=== PATIENT | female | born 1960 | race Caucasian/White ===

== ENCOUNTER 2016-10-03 04:27 | Emergency (ER) | payer MEDICARE, OTHER ==
[~2016-10-03] VITALS: Ht 154.9 cm; Wt 51.6 kg
[~2016-10-03 04:27] MED LIST: FAMO20 PO; LORTA5 PO; MACR100C PO; MEDR10 PO; ONDA1TAB16 PO
[2016-10-03 04:35] VITALS: BP 156/95; PULSE 119; RESP 18; TEMP 98.3; O2SAT 96
[2016-10-03 04:50] VITALS: PULSE 100; RESP 18; O2SAT 99
[2016-10-03 04:52] VITALS: RESP 17
[2016-10-03] MEDS ORDERED: RASA1TAB PO (05:06)
[2016-10-03] MEDS ORDERED: ACET325T PO (05:08)
[2016-10-03] MEDS ORDERED: ACETAMINOPHEN 325 MG TAB PO ONE (05:15)
--- NOTE | 2016-10-03 05:15 | PD ---
HPI Chief Complaint: Cold / Flu Symptoms Time Seen by Provider: 04:52 Travel History International Travel<30 days: No Contact w/Intl Traveler<30days: No Traveled to known affect area: No History of Present Illness HPI 56yo F with early Parkinson and hip problem presents to the ED with c/o generalized muscle ache and occasional cough for a few days. +Nasal congestion. Has chills and thinks she has the flu. Son has same symptoms at home. Denies any fever, chest pain, sob, n/v, abdominal pain, focal weakness or numbness. 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;graft done at 3 y/o) Musculoskeletal: Yes (hip dysplasia) Parkinson's Disease: Yes (Currently in process of diagnosis) Immunizations Current: Yes Tetanus Vaccination: Unknown Influenza Vaccination: No ?: Not : 0 Past Surgical History Joint Replacement: Yes (Total Right hip) Social History Alcohol Use: Yes (rare) Tobacco Use: No Substance Use: No Allergies-Medications (Allergen,Severity, Reaction): Coded Allergies: No Known Allergies (Unverified , 10/03/16) Reported Meds & Prescriptions Reported Meds & Active Scripts Active Reported Acetaminophen 325 Mg Tab 650 Mg PO Q4-6H PRN Rasagiline 1 Mg Tab 1 Mg PO DAILY Review of Systems Except as stated in HPI: all other systems reviewed are Neg Physical Exam Narrative GENERAL: 56yo F not in distress. SKIN: Focused skin assessment warm/dry. HEAD: Atraumatic. Normocephalic. EYES: Pupils equal and round. No scleral icterus. No injection or drainage. ENT: No nasal bleeding or discharge. Mucous membranes pink and moist. NECK: Trachea midline. No JVD. CARDIOVASCULAR: Regular rate and rhythm. No murmur appreciated. RESPIRATORY: No accessory muscle use. Clear to auscultation. Breath sounds equal bilaterally. GASTROINTESTINAL: Abdomen soft, non-tender, nondistended. MUSCULOSKELETAL: No obvious deformities. No clubbing. No cyanosis. No edema. NEUROLOGICAL: Awake and alert. No obvious cranial nerve deficits. Motor grossly within normal limits. Normal speech. Resting tremor that is normal for her. PSYCHIATRIC: Appropriate mood and affect; insight and judgment normal. Data Data Last Documented VS Vital Signs Date Time Temp Pulse Resp B/P Pulse Ox O2 Delivery O2 Flow Rate FiO2 10/03/16 06:00 73 16 148/83 97 Room Air 10/03/16 04:35 98.3 Orders Influenzae A/B Antigen (10/03/16 05:02) Chest, Single Ap (10/03/16 ) Acetaminophen (Tylenol) (10/03/16 05:15) Complete Blood Count With Diff (10/03/16 05:10) Basic Metabolic Panel (Bmp) (10/03/16 05:10) Sodium Chlorid 0.9% 500 Ml Inj (Ns 500 M (10/03/16 05:45) Ondansetron Inj (Zofran Inj) (10/03/16 05:45) Labs Laboratory Tests Test 10/03/16 05:20 White Blood Count 8.8 TH/MM3 Red Blood Count 4.45 MIL/MM3 Hemoglobin 13.0 GM/DL Hematocrit 39.1 % Mean Corpuscular Volume 87.8 FL Mean Corpuscular Hemoglobin 29.1 PG Mean Corpuscular Hemoglobin 33.2 % Concent Red Cell Distribution Width 13.0 % Platelet Count 411 TH/MM3 Mean Platelet Volume 8.3 FL Neutrophils (%) (Auto) 66.1 % Lymphocytes (%) (Auto) 27.2 % Monocytes (%) (Auto) 5.8 % Eosinophils (%) (Auto) 0.3 % Basophils (%) (Auto) 0.6 % Neutrophils # (Auto) 5.8 TH/MM3 Lymphocytes # (Auto) 2.4 TH/MM3 Monocytes # (Auto) 0.5 TH/MM3 Eosinophils # (Auto) 0.0 TH/MM3 Basophils # (Auto) 0.1 TH/MM3 CBC Comment DIFF FINAL Differential Comment Sodium Level 139 MEQ/L Potassium Level 3.5 MEQ/L Chloride Level 99 MEQ/L Carbon Dioxide Level 30.9 MEQ/L Anion Gap 9 MEQ/L Blood Urea Nitrogen 9 MG/DL Creatinine 0.75 MG/DL Estimat Glomerular Filtration 80 ML/MIN Rate Random Glucose 114 MG/DL Calcium Level 9.0 MG/DL MDM Medical Decision Making Medical Screen Exam Complete: Yes Emergency Medical Condition: Yes Interpretation(s) Laboratory Tests Test 10/03/16 05:20 White Blood Count 8.8 TH/MM3 (4.0-11.0) Red Blood Count 4.45 MIL/MM3 (4.00-5.30) Hemoglobin 13.0 GM/DL (11.6-15.3) Hematocrit 39.1 % (35.0-46.0) Mean Corpuscular Volume 87.8 FL (80.0-100.0) Mean Corpuscular Hemoglobin 29.1 PG (27.0-34.0) Mean Corpuscular Hemoglobin 33.2 % Concent (32.0-36.0) Red Cell Distribution Width 13.0 % (11.6-17.2) Platelet Count 411 TH/MM3 (150-450) Mean Platelet Volume 8.3 FL (7.0-11.0) Neutrophils (%) (Auto) 66.1 % (16.0-70.0) Lymphocytes (%) (Auto) 27.2 % (9.0-44.0) Monocytes (%) (Auto) 5.8 % (0.0-8.0) Eosinophils (%) (Auto) 0.3 % (0.0-4.0) Basophils (%) (Auto) 0.6 % (0.0-2.0) Neutrophils # (Auto) 5.8 TH/MM3 (1.8-7.7) Lymphocytes # (Auto) 2.4 TH/MM3 (1.0-4.8) Monocytes # (Auto) 0.5 TH/MM3 (0-0.9) Eosinophils # (Auto) 0.0 TH/MM3 (0-0.4) Basophils # (Auto) 0.1 TH/MM3 (0-0.2) CBC Comment DIFF FINAL Differential Comment Sodium Level 139 MEQ/L (136-145) Potassium Level 3.5 MEQ/L (3.5-5.1) Chloride Level 99 MEQ/L (98-107) Carbon Dioxide Level 30.9 MEQ/L (21.0-32.0) Anion Gap 9 MEQ/L (5-15) Blood Urea Nitrogen 9 MG/DL (7-18) Creatinine 0.75 MG/DL (0.50-1.00) Estimat Glomerular Filtration 80 ML/MIN (>89) Rate Random Glucose 114 MG/DL (74-106) Calcium Level 9.0 MG/DL (8.5-10.1) Last Impressions Chest X-Ray 10/03/16 0000 Signed Impressions: Service Date/Time: Monday, October 03, 2016 05:31 - CONCLUSION: 1. No acute cardiopulmonary disease. Tirso Bui MD Differential Diagnosis Influenza vs. URI vs. Bronchitis vs. Pneumonia Narrative Course 56yo F with flu like symptoms. Labs reviewed, no leukocytosis. BMP unremarkable. CXR showed no acute cardiopulmonary disease. Influenza negative. Pt given 500cc IVF NS, zofran and acetaminophen. Pt reevaluated at bedside and feels better. VS stable. Return precautions given. Diagnosis Primary Impression: Viral syndrome Patient Instructions: General Instructions Departure Forms: Tests/Procedures Additional Instructions: Please follow up with your PMD in 3-7 days. Return to the ED if symptoms worsen. Med/Other Pt SpecificInfo: Prescription(s) given Scripts Dextromethorphan Polistirex Liq (Robitussin 12 Hour Cough Liq)30 Mg/5 Ml Sus10 Ml PO Q12H PRN (COUGH) 5 Days Ref 0 Prov:Yuliana Toro DO 10/03/16 Disposition: 01 DISCHARGE HOME Condition: Stable Yuliana Toro DO October 03, 2016 05:15
[2016-10-03 05:39] LABS: AUTOMATED NEUTROPHIL # 5.8 TH/MM3 (1.8-7.7); BASOPHIL # 0.1 TH/MM3 (0-0.2); BASOPHIL % 0.6 % (0.0-2.0); EOSINOPHIL % 0.3 % (0.0-4.0); HEMATOCRIT 39.1 % (35.0-46.0); HEMO FLAGS DIFF FINAL; LYMPH % 27.2 % (9.0-44.0); LYMPHOCYTE # 2.4 TH/MM3 (1.0-4.8); MEAN CELL VOLUME 87.8 FL (80.0-100.0); MEAN CORPUSCULAR HEMOGLOBIN 29.1 PG (27.0-34.0); MEAN CORPUSCULAR HGB CONC 33.2 % (32.0-36.0); MONO % 5.8 % (0.0-8.0); NEUT % 66.1 % (16.0-70.0); PLATELET COUNT 411 TH/MM3 (150-450); RED BLOOD COUNT 4.45 MIL/MM3 (4.00-5.30); WHITE BLOOD COUNT 8.8 TH/MM3 (4.0-11.0)
[2016-10-03] MEDS ORDERED: SODIUM CHLORID 0.9% 500 ML INJ 500 ML IV ONE (05:45)
[2016-10-03] MEDS ORDERED: ONDANSETRON HCL 4 MG/2 ML VIAL IV PUSH ONE (05:45)
[2016-10-03 05:48] LABS: POTASSIUM 3.5 MEQ/L (3.5-5.1)
[2016-10-03 05:51] LABS: BICARBONATE 30.9 MEQ/L (21.0-32.0)
--- NOTE | 2016-10-03 05:53 | RADHPO ---
EXAM DATE/TIME: 10/03/2016 05:31 [facility] COMPARISON: No previous studies available for comparison. INDICATIONS : Cough and congestion. MEDICAL HISTORY : Parkinson's disease. SURGICAL HISTORY : None. ENCOUNTER: Initial ACUITY: 3 days PAIN SCORE: 3/10 LOCATION: chest FINDINGS: A single view of the chest demonstrates the lungs to be symmetrically aerated without evidence of mas s, infiltrate or effusion. The cardiomediastinal contours are unremarkable. Osseous structures are intact. CONCLUSION: 1. No acute cardiopulmonary disease. Tirso Bui MD on October 03, 2016 at 5:52 Board Certified Radiologist. This report was verified electronically.
[2016-10-03 06:00] VITALS: BP 148/83; PULSE 73; RESP 16; O2SAT 97
[2016-10-03] MEDS ORDERED: DEXT1SUS PO (06:17)
== END 2016-10-03 06:35 | disposition home or self-care (01) ==
LOC: PHED 04:27
DX: B34.9 Viral infection, unspecified (principal)
CPT/HCPCS: 71010; 80048; 85025; 87804; 96361; 96374; 99283; J2405; J7040